=== PATIENT | female | born 1970 | race Caucasian/White ===

== ENCOUNTER → 2016-12-22 | Outpatient (CLI) | payer OTHER ==
[~2016-12-22] MED LIST: CHOL2000 PO; DOCU-30 PO; FING0.5C3 PO; GABA100C PO; IBUP200T48 PO; LEVO125T PO; OMEG1CAP12 PO; OXYC-302 PO
[2016-12-24 17:00] LABS: BLOOD UREA NITROGEN 16 mg/dL (7-18)
== END | disposition home or self-care (01) ==
LOC: STAR 15:14
PROVIDERS: ATTEND Neurological Surgery
DX: Z01.810 Encounter for preprocedural cardiovascular examination (principal); Z01.811 Encounter for preprocedural respiratory examination; J98.11 Atelectasis; Q79.1 Other congenital malformations of diaphragm; R79.1 Abnormal coagulation profile
CPT/HCPCS: 36415; 71020; 80048; 84703; 85025; 85610; 85730; 93005

== ENCOUNTER 2016-12-30 11:17 | Inpatient (IN) | payer OTHER ==
[2016-12-22 15:01] VITALS: BP 129/86
[~2016-12-30] VITALS: Ht 175.3 cm; Wt 80.0 kg
[~2016-12-30 11:17] MED LIST changes: +CEFAZOLIN 1,000 MG ONE; +DEXAMETHASONE 4 MG/ML, 1ML ONE; -OMEG1CAP12 PO; +OMEG1CAP23 PO; +ONDANSETRON 2MG/ML, 2ML ONE; +PROPOFOL 10 MG/ML, 20ML ONE; +PROPOFOL 10 MG/ML, 50ML ONE; +SUCCINYLCHOLINE 20 MG/ML, 10ML ONE
[2016-12-30] MEDS ORDERED: LACTATED RINGERS 1,000 ML IV SCH (11:49)
[2016-12-30] MEDS ORDERED: NITR50CA PO (11:55)
[2016-12-30] MEDS ORDERED: FENTANYL PF 250 MCG/5ML ONE (13:10)
[2016-12-30] MEDS ORDERED: MIDAZOLAM 1 MG/ML, 2ML ONE ×2 (13:10→17:35)
[2016-12-30] MEDS ORDERED: KETAMINE 10 MG/ML, 20ML ONE (15:09)
[2016-12-30] MEDS ORDERED: MEPERIDINE/PF 25MG/0.5ML IVPush PRN (15:30)
[2016-12-30] MEDS ORDERED: MIDAZOLAM 1 MG/ML, 2ML IV PRN (15:30)
[2016-12-30] MEDS ORDERED: PROMETHAZINE 25 MG/ML, 1ML IV PRN (15:30)
[2016-12-30] MEDS ORDERED: ONDANSETRON 2MG/ML, 2ML IVPush PRN (15:30)
[2016-12-30] MEDS ORDERED: ACETAMINOPHEN 325 MG TABLET PO PRN (15:30)
[2016-12-30] MEDS ORDERED: hydrALAzine 20 MG/ML, 1ML IV PRN (15:30)
[2016-12-30] MEDS ORDERED: OXYcodone 5 MG/5 ML ORAL.SOL UDC PO PRN (15:30)
[2016-12-30] MEDS ORDERED: ALBUTEROL/IPRATROPIUM 2.5MG/0.5MG, 3 ML NPPB PRN (15:30)
[2016-12-30] MEDS ORDERED: LABETALOL 5MG/ML, 20ML IV PRN (15:30)
[2016-12-30] MEDS ORDERED: HYDROmorphone 1 MG/ML, 1ML ONE ×2 (15:42→17:35)
[2016-12-30] MEDS ORDERED: NEOSPORIN OINT, 15GM ONE (15:52)
[2016-12-30] MEDS ORDERED: FENTANYL PF 100 MCG/2ML ONE (16:26)
[2016-12-30] MEDS ORDERED: ACETAMINOPHEN 650 MG/20.3 ML UDC ONE (16:26)
[2016-12-30] MEDS ORDERED: OXYcodone 5 MG/5 ML ORAL.SOL UDC ONE (16:27)
[2016-12-30] MEDS: FENTANYL PF 100 MCG/2ML IV PRN ×3 (16:46→17:08)
[2016-12-30] MEDS: HYDROmorphone 1 MG/ML, 1ML IV PRN ×2 (17:44→17:56)
[2016-12-30] MEDS ORDERED: HYDROcodone/APAP 5/325 TABLET PO PRN (19:30)
[2016-12-30] MEDS ORDERED: PROMETHAZINE 25 MG/ML, 1ML IM PRN (19:30)
[2016-12-30] MEDS ORDERED: ONDANSETRON 2MG/ML, 2ML IV PRN (19:30)
[2016-12-30] MEDS ORDERED: METHOCARBAMOL 1,000 MG in DEXTROSE 5% 100 ML IV ONE (20:00)
[2016-12-30] MEDS: NS + 20MEQ KCL 1,000 ML IV SCH (20:12)
[2016-12-30] MEDS: OXYcodone/APAP 7.5/325MG TABLET PO PRN ×2 (20:52→20:53)
[2016-12-30 22:09] VITALS: BP 121/74
[2016-12-30] MEDS: morphine SULFATE 10 MG/ML, 1ML IV PRN ×2 (22:35→23:21)
[2016-12-30] MEDS: CEFAZOLIN PMX 1GM/50ML 50 ML IVPB SCH (23:15)
[2016-12-31 00:06] VITALS: BP 132/74
[2016-12-31] MEDS: OXYcodone/APAP 7.5/325MG TABLET PO PRN ×6 (00:53→21:39)
[2016-12-31] MEDS: morphine SULFATE 10 MG/ML, 1ML IV PRN ×4 (03:20→18:46)
[2016-12-31] MEDS: METHOCARBAMOL 750 MG in DEXTROSE 5% 100 ML IV SCH ×3 (04:01→21:39)
[2016-12-31 04:15] VITALS: BP 127/84
[2016-12-31] MEDS ORDERED: LEVOTHYROXINE 125 MCG TABLET PO SCH (06:00)
[2016-12-31] MEDS: CEFAZOLIN PMX 1GM/50ML 50 ML IVPB SCH (06:34)
[2016-12-31] MEDS: NS + 20MEQ KCL 1,000 ML IV SCH ×2 (06:34→18:14)
[2016-12-31 07:08] VITALS: BP 123/76
[2016-12-31] MEDS: CHOLECALCIFEROL 1,000 UNIT TABLET PO SCH (07:38)
[2016-12-31] MEDS: SENNA/DOCUSATE TABLET PO SCH (07:38)
[2016-12-31] MEDS ORDERED: FINGOLIMOD 0.5 MG PO SCH ×2 (09:00)
[2016-12-31] MEDS ORDERED: GABAPENTIN 100 MG CAPSULE PO SCH ×2 (09:00→21:00)
[2016-12-31] MEDS ORDERED: FAMOTIDINE 20 MG TABLET PO ONE (09:30)
[2016-12-31] MEDS: DEXAMETHASONE 4 MG/ML, 1ML IV SCH ×3 (09:43→21:39)
[2016-12-31 12:30] VITALS: BP 117/76
[2016-12-31 19:50] VITALS: BP 117/67
[2016-12-31] MEDS ORDERED: FINGOLIMOD HOMEMEDPO SCH (21:00)
[2017-01-01] MEDS: NS + 20MEQ KCL 1,000 ML IV SCH ×2 (01:58→11:18)
[2017-01-01] MEDS: OXYcodone/APAP 7.5/325MG TABLET PO PRN ×3 (02:17→10:32)
[2017-01-01 02:41] VITALS: BP 121/78
[2017-01-01] MEDS: DEXAMETHASONE 4 MG/ML, 1ML IV SCH ×2 (03:40→08:22)
[2017-01-01] MEDS: METHOCARBAMOL 750 MG in DEXTROSE 5% 100 ML IV SCH ×2 (03:42→13:10)
[2017-01-01] MEDS ORDERED: LEVOTHYROXINE 125 MCG TABLET PO SCH (06:00)
[2017-01-01 06:50] VITALS: BP 119/76
[2017-01-01] MEDS: SENNA/DOCUSATE TABLET PO SCH (08:23)
[2017-01-01] MEDS: CHOLECALCIFEROL 1,000 UNIT TABLET PO SCH (08:23)
[2017-01-01] MEDS ORDERED: OXYC-223 PO (13:01)
[2017-01-01] MEDS ORDERED: METH750T87 PO (13:02)
[2017-01-01] MEDS ORDERED: medrol (13:12)
[2017-01-01] MEDS ORDERED: Medrol (13:13)
[2017-01-01] MEDS ORDERED: METH4TAB2 PO (13:15)
[2017-01-01 13:26] VITALS: BP 125/85
[2017-01-02] MEDS ORDERED: METHOCARBAMOL 750 MG TABLET PO SCH (04:00)
== END 2017-01-01 14:15 | disposition home or self-care (01) | DRG 519 ==
LOC: ORIP 11:17 → 4NOR 18:08
PROVIDERS: ADMIT Neurological Surgery; ATTEND Neurological Surgery
PROC: 01NB0ZZ Release Lumbar Nerve, Open Approach (ICD-10-PCS; 2016-12-30)
PROC: 00QT0ZZ Repair Spinal Meninges, Open Approach (ICD-10-PCS; 2016-12-30)
PROC: 01NR0ZZ Release Sacral Nerve, Open Approach (ICD-10-PCS; 2016-12-30)
PROC: 0SB40ZZ Excision of Lumbosacral Disc, Open Approach (ICD-10-PCS; principal; 2016-12-30 14:30)
DX: M51.27 Other intervertebral disc displacement, lumbosacral region (principal); G96.0 Cerebrospinal fluid leak; G97.41 Accidental puncture or laceration of dura during a procedure; M43.16 Spondylolisthesis, lumbar region; Y83.8 Other surgical procedures as the cause of abnormal reaction of the patient, or of later complication, without mention of misadventure at the time of the procedure; E03.9 Hypothyroidism, unspecified; G35 Multiple sclerosis; L29.9 Pruritus, unspecified; T40.2X5A Adverse effect of other opioids, initial encounter; Z79.899 Other long term (current) drug therapy; Z90.710 Acquired absence of both cervix and uterus; Z90.49 Acquired absence of other specified parts of digestive tract
CPT/HCPCS: 72100; J0690; J1100; J1170; J2250; J2405; J2704; J3010; J3480; C1781; J0330; J2270; J2800; J7120

== ENCOUNTER 2018-08-17 23:15 | Emergency (ER) | payer OTHER ==
[~2018-08-17] VITALS: Ht 175.3 cm; Wt 79.5 kg
[~2018-08-17 23:15] MED LIST changes: -CEFAZOLIN 1,000 MG ONE; -DEXAMETHASONE 4 MG/ML, 1ML ONE; +DOCU-131 PO; -DOCU-30 PO; -IBUP200T48 PO; +IBUP200T49 PO; +METH4TAB2 PO; +METH750T87 PO; +Medrol; +NITR50CA PO; -ONDANSETRON 2MG/ML, 2ML ONE; +OXYC-306 PO; -PROPOFOL 10 MG/ML, 20ML ONE; -PROPOFOL 10 MG/ML, 50ML ONE; -SUCCINYLCHOLINE 20 MG/ML, 10ML ONE; +medrol
--- NOTE | 2018-08-17 23:36 | NUR ---
PATIENT REPORTS SHORTNESS OF BREATH AND INABILITY TO TAKE A DEEP BREATH SINCE 16:00 TODAY. SHE HAS A LOUD PRODUCTIVE COUGH. SHE IS ON MONITOR, RAILS UP. PATIENT STATES THAT SHE HAS BEEN OFF AND ON SICK WITH COLD/FLU LIKE SYMTPOMS SINCE THANKS; SHE HAS BEEN TO SEE HER CENTRAL OFFICE SUPERVISOR/URGENT CARE AND [facility] DURING THAT TIME AND THEY REPORT VIRAL, SECOND SHE TOOK COURSE AMOXICILLAN, THIRD TIME CLARITAN AND FLONASE & COUGH SUPPRESSANTS, THEN FOURTH TIME SHE WAS FEBRILE SO SHE WENT FOR XRAYS THAT CAME BACK CLEAR & PRESCIBRED PREDISONE AND FLOVENT.
--- NOTE | 2018-08-18 00:14 | NUR ---
patient and in room, warm blanket given. patient has RT/lab orders in process. will monitor.
[2018-08-18] MEDS ORDERED: ALBUTEROL/IPRATROPIUM 2.5MG/0.5MG, 3 ML NPPB SCH (00:30)
--- NOTE | 2018-08-18 00:38 | NUR ---
EKG DONE IN TRIAGE
[2018-08-18 00:48] LABS: BASOPHILS # (AUTO) 0.01 x10^3/uL (0-0.1); BASOPHILS % (AUTO) 0 % (0-1); EOSINOPHILS % (AUTO) 0 % (1-7); LYMPHOCYTES # (AUTO) 0.62 x10^3/uL (1-3.4); LYMPHOCYTES % (AUTO) 16 % (22-44); MD NO; MEAN CORPUSCULAR HEMOGLOBIN 28.7 pg (27.0-34.8); MEAN CORPUSCULAR HGB CONC 33.6 g/dL (32.4-35.8); MEAN CORPUSCULAR VOLUME 85.6 fL (80-100); MEAN PLATELET VOLUME 7.6 fL (7.4-10.4); MONOCYTES % (AUTO) 15 % (2-9); NEUTROPHILS # (AUTO) 2.66 x10^3/uL (1.8-6.8); NEUTROPHILS % (AUTO) 69 % (42-75); PLATELET COUNT 199 x10^3/uL (130-400); RED CELL DISTRIBUTION WIDTH 17.4 % (9.6-15.2)
[2018-08-18 01:01] LABS: ALBUMIN 3.6 g/dL (3.4-5.0); ANION GAP 8 mmol/L (5-15); CALCIUM 8.7 mg/dL (8.5-10.1); CHLORIDE 107 mmol/L (98-107); CREATININE 0.76 mg/dL (0.55-1.02)
[2018-08-18 01:05] LABS: TROPONIN I < 0.015 ng/mL (0.000-0.045)
[2018-08-18 01:58] VITALS: BP 115/78
--- NOTE | 2018-08-18 01:59 | NUR ---
discharge teaching reviewed regarding follow up care. shows understanding. feels better, left with driving.
== END 2018-08-18 02:15 | disposition home or self-care (01) ==
LOC: ED 23:59
DX: J20.9 Acute bronchitis, unspecified (principal); Z90.710 Acquired absence of both cervix and uterus; Z88.3 Allergy status to other anti-infective agents; Z88.8 Allergy status to other drugs, medicaments and biological substances
CPT/HCPCS: 36415; 80048; 82040; 83880; 84484; 85025; 85379; 93005; 94640; 99283; 99284

== ENCOUNTER 2021-03-14 06:00 | Day surgery (SDC) | payer OTHER ==
[~2021-03-14] VITALS: Ht 175.3 cm; Wt 81.2 kg
[~2021-03-14 06:00] MED LIST changes: -OXYC-302 PO; -OXYC-306 PO; +OXYC1TAB12 PO; +OXYC1TAB16 PO
[2021-03-14 06:52] VITALS: BP 142/89
[2021-03-14] MEDS ORDERED: FLUMAZENIL 0.1 MG/1 ML, 5ML ONE (08:06)
[2021-03-14] MEDS ORDERED: NALOXONE 1 MG/ML, 2ML ONE (08:06)
[2021-03-14] MEDS ORDERED: FENTANYL PF 100 MCG/2ML ONE (08:06)
[2021-03-14] MEDS ORDERED: MIDAZOLAM 1 MG/ML, 5ML ONE (08:06)
[2021-03-14] MEDS ORDERED: GADOTERATE 10 MMOL/20ML SYR ONE (10:30)
== END 2021-03-14 11:55 | disposition home or self-care (01) ==
LOC: OUT 06:00 → EDSTATUS 08:00 → OUT 11:55
PROVIDERS: ATTEND Registered Nurse
DX: G35 Multiple sclerosis (principal); M51.34 Other intervertebral disc degeneration, thoracic region; M50.322 Other cervical disc degeneration at C5-C6 level
CPT/HCPCS: 70553; 72156; 72157; 99156; 99157; A9575; J2250; J3010; J2310